=== PATIENT | female | born 1995 | race Caucasian/White ===

== ENCOUNTER 2022-07-03 00:16 | Day surgery (SDC) | payer OTHER, SELFPAY ==
[2022-06-18 15:01] VITALS: BMI 28.2
--- NOTE | 2022-06-18 15:07 | PC.NURSE ---
Report to the Outpatient Waiting Room, entrance under the green pavilion located off [facility], at time 06:00AM on date 07/03/22. Planned Procedure Time: 07:30AM. Time changes happen often and if your time is changed the preop area will call you the afternoon before. - You and your visitor will be asked to self-screen and do not enter if you have any COVID symptoms. - Only one visitor is requested with a max of two and NO children visitors are allowed at this time. - The patient visitor may be requested to leave or wait in car when not with patient due to distancing restrictions. - A mask is optional within the hospital. Patients may have clear liquids (water, carbonated beverages, clear teas, apple juice) until 3 hours prior to surgery (04:30AM) with a maximum of 20 ounces. - No food from midnight until time of surgery Take the following medications with a SIP of water the morning of surgery: METOPROLOL Medications to discontinue per physician N/A Please no make-up, nail divehi, hairspray, perfume, deodorant, or body powder the day of surgery. No jewelry (including any body piercings) or valuables the day of surgery, leave them at home. Please take a shower or bath the night before, or the morning of, surgery with an antibacterial soap. Wear comfortable, loose fitting clothing. - Jewelry must be removed prior to entering the operating room. Rings and piercings that are not removed may be cut off. - The hospital will not accept responsibility for valuables. - Please leave all valuables, including medications, at home the day of surgery. If you are going home after surgery, a licensed grab driver must drive you home. - NO public transportation without another adult if you receive anesthesia. - We recommend that an adult stay with you for 24 hours following discharge. - We also recommend that you do not drive, make important decision, drink alcoholic beverages, or take any drugs that were not prescribed by your health care provider for at least 24 hours after your discharge time. Follow any additional instructions given to you from your surgeon. If you or anyone in your household have experienced Covid symptoms in the past week, please notify your surgeon or the nurse liaison at the phone number below for possible testing. Telephone instructions given to PATIENT and asked if any additional questions and then verbalized understanding. Patient advised to call surgeon office or pre surgery nurse liaison [phone] if any additional questions.
--- NOTE | 2022-07-02 10:41 | P.PNAN_ITS ---
Anes - Initial Pre Proc Eval Procedure: Operation Date: 07/03/22 07:30 Proposed Procedures p Bilateral Breast Reduction - Harman Santana MD Date/Time: 07/02/22 10:41 Surgeon: Harman Santana MD Pre Op Diagnosis: micromastia Patient Data Age: 27 Gender: F Height: 1.57 m Weight: 70 kg Allergies Allergy/AdvReac Type Severity Reaction Status Date / Time No Known Allergies Allergy Mild Verified 06/18/22 15:02 Home Medications Medication Instructions Recorded Confirmed Type metoprolol tartrate 25 mg tablet 12.5 mg PO BID 06/18/22 06/18/22 History Patient hx anesthesia problems: post op nausea/vomiting Family hx anesthesia problems: none Results Review: All pre-operative results and documents have been reviewed as part of the pre- operative evaluation. [facility] Past Medical History Medical History (Updated 07/02/22 @ 10:42 by Chang Weeks DO) PONV (postoperative nausea and vomiting) Sinus tachycardia Surgical History Surgical History (Updated 02/25/22 @ 08:47 by Yvrose Morales) Hx of tonsillectomy Family History Family History (Updated 02/25/22 @ 08:47 by Yvrose Morales) Father Cerebrovascular accident Mother Rheumatoid arthritis Social History Social History (Updated 02/25/22 @ 08:47 by Yvrose Morales) Smoking status: Never smoker Second hand tobacco smoke exposure: No Alcohol intake: current Alcohol use details: OCCASIONAL Substance use: never Substance use type: does not use Living arrangements: alone Spiritual care concerns: No Anes - Eval Final PreProcedure Day of Procedure 07/02/22 10:41 Patient weight: overweight Heart: regular rate and rhythm Lungs: clear to auscultation Airway: Mallampati scale class II Neurological: alert and oriented Last oral intake: >/= 8 hours ASA classification: II Emergent: no Anesthetic plan: proceed Anesthesia type and monitoring: general LMA and standard monitoring Results Review: All pre-operative results and documents have been reviewed as part of the pre- operative evaluation. Informed Consent: The patient's anesthetic plan and its attendant risks and benefits were discussed with the patient/family/POA. Questions were solicited and answers provided to the satisfaction of the patient/family/POA.
[2022-07-03] VITALS (9 sets, daily range): BP systolic 120–141; BP diastolic 67–90; PULSE 68–120; RESP 12–20; TEMP 36.2–36.4; O2SAT 96–100
--- NOTE | 2022-07-03 06:29 | ECG_ITS ---
Measurements Intervals [place] Rate: 66 P: 29 VA: 142 QRS: 5 QRSD: 85 T: 14 QT: 373 QTc: 393 Interpretive Statements SINUS RHYTHM NORMAL ECG COMPARED TO ECG 01/02/2019 22:08:54 HEART RATE IS REDUCED Electronically Signed On 07-04-2022 7:23:24 FLIGHT OPERATION COORDINATOR by Raoul Haile M.D.
[2022-07-03] MEDS: LACTATED RINGERS 1,000 ML 30 ML IV CONT ×2 (06:43→09:29)
[2022-07-03 07:02] LABS: Urine Cotinine NEGATIVE
--- NOTE | 2022-07-03 07:07 | WPDHPUPDATE1 ---
History and Physical Update Update Date/Time: 07/03/22 07:07 History and Physical has been reviewed, including an updated exam of the patient. There are NO changes in the patient's condition. Risks, benefits, and alternatives have been discussed and questions answered. Patient agrees to proceed with procedure.
--- NOTE | 2022-07-03 07:07 | W.PM.PROC2 ---
Procedure Note - Detailed Date of Procedure 07/03/22 Pre-op Diagnosis micromastia Post-op Diagnosis Same Procedure Performed Bilateral Reduction Mammaplasty Surgeon Harman Santana MD Anesthesia General Findings Inverted T Superior medial pedicle Tissue removed: Right - 491.8 grams Left - 462.9 grams Lipoaspirate 100 cc Description of Procedure She is here today for bilateral breast reduction. Previously and again today the risks, benefits, alternatives were discussed in extensive detail. I wanted her to be very realistic about the risks involved as well as expectations. We discussed aftercare and what to monitor for. She understands we can never guarantee final breast size and there will always be asymmetry. I was very upfront and honest about the risks of sensation change and even nipple loss (). Made sure answered all of her questions to her satisfaction today and consent was obtained. She was marked in the preoperative holding area with their verification. The patient was taken to the operating room placed supine on the operating table. Anesthesia was provided by anesthesiology. She was prepped and draped in a standard sterile fashion. A surgical time-out was taken. Stab incisions were made and I tumessed with a tumescent solution. I marked out the nipple-areolar complex at 42 mm. I then de-epithelialized the pedicle. The pedicle was well left well more than 2 cm in thickness. I then removed the inferior portion of the breast as well as the central keel to get shape based on preoperative planning. At this point copiously irrigated with saline solution and verified a strict hemostasis. I reapproximated the pillars using a 2-0 PDS. I tailor tacked the breast into place with asha. She was placed in a sitting position. I verified the nipple-areolar complex position based on preoperative markings, intraoperative measurements, and observation which were in full agreement. This nipple-areolar complex was marked at 42 mm in size. To maximize symmetry suction lipectomy was completed based on S.A.F.E. technique utilizing a 4mm basket cannula. This was based on preoperative planning, intraoperative observation, and rolling pinch test. I then placed supine and de-epithelialized this. Nipple-areolar complex was inset with 3-0 Monocryl. I closed IMF deep with 1 strattafix. I closed the vertical incision with 3-0 Monocryl in the IMF with 3-0 stratafix. Then everything was closed using a running subcuticular 4-0 Monocryl followed by Steri-Strips. A dressing was placed followed by surgical bra. Patient was awoke and taken to PACU without difficulty. All instrument sponge counts were correct at the end of the case. Estimated Blood Loss 30 Drains No Packing No Pathology Yes (Bilteral breast tissue) Complications No immediate complications Condition Stable Disposition PACU
[2022-07-03] MEDS: SCOPOLAMINE 1.5 MG PATCH TRANSDERM (07:36)
[2022-07-03] MEDS: TRANEXAMIC ACID 1,000MG/ISO100 1,000 MG/100 ML BAG 200 MG IVPB (07:36)
[2022-07-03] MEDS: ceFAZolin 2 GM/D5W 50 ML 2 GM/50 ML BAG IVPB (07:48)
[2022-07-03] MEDS: LACTATED RINGERS IRRIG 1,000 ML, LIDOCAINE HCL 1% LOCAL INJ 50 ML, EPINEPHrine HCL INJ ... INFILTRATE (08:08)
[2022-07-03] MEDS: fentaNYL CITRATE INJ (*CRX) 100 MCG/2 ML VIAL 25 MCG IV PUSH (10:11)
[2022-07-03] MEDS: oxyCODONE HCL (*CRX) 5 MG TAB IR PO (10:49)
== END 2022-07-03 11:40 | disposition home or self-care (01) ==
PROVIDERS: PCP Internal Medicine; Visit Provider Surgery Plastic and Reconstructive Surgery
PROC: 0HBV0ZZ Excision of Bilateral Breast, Open Approach (ICD-10-PCS; CPT 19318; principal; 2022-07-03 07:30)
DX: Z41.1 Encounter for cosmetic surgery (principal); N64.82 Hypoplasia of breast; R00.0 Tachycardia, unspecified; Z79.899 Other long term (current) drug therapy
CPT/HCPCS: 19318; 80307; 88305; 93005; A9270; J0171; J0690; J1100; J1170; J2250; J2405; J2704; J3010; J7120

== ENCOUNTER 2023-11-23 10:15 | Outpatient (CLI) | payer OTHER, SELFPAY ==
[2023-11-25 13:39] LABS: NIL 0.01 IU/mL; Quantiferon TB Plus, 1T NEGATIVE (NEGATIVE)
== END 2023-11-23 10:16 | disposition home or self-care (01) ==
LOC: ANHLAB 10:21
PROVIDERS: Visit Provider Nurse Practitioner Family
DX: Z11.1 Encounter for screening for respiratory tuberculosis (principal)
CPT/HCPCS: 36415; 86480

== ENCOUNTER 2024-03-22 10:25 | Outpatient (CLI) | payer OTHER, SELFPAY ==
[2024-03-22 11:09] LABS: Alanine Aminotransferase 22 U/L (6-35); Albumin Level 4.9 g/dL (3.5-5.1); Alkaline Phosphatase 73 U/L (38-126); Anion Gap 10 mmol/L (4-12); Aspartate Amino Transferase 30 U/L (14-36); Bilirubin,Total 0.8 mg/dL (0.2-1.3); Blood Urea Nitrogen 14 mg/dL (7-17); Calcium 9.3 mg/dL (8.4-10.2); Carbon Dioxide 27 mmol/L (22-30); Chloride 100 mmol/L (98-107); Estimated Glomerular Filt Rate > 60; Glucose 96 mg/dL (65-110); Potassium 3.9 mmol/L (3.4-5.0); Sodium 137 mmol/L (137-145)
[2024-03-22 12:33] LABS: Vitamin D 25 Hydroxy 40.6 ng/mL
== END 2024-03-22 10:26 | disposition home or self-care (01) ==
LOC: ANHOBOP 10:27
PROVIDERS: Visit Provider Obstetrics & Gynecology
DX: F41.9 Anxiety disorder, unspecified (principal)
CPT/HCPCS: 36415; 80053; 82306; 82607; 84443

== ENCOUNTER 2024-10-05 08:35 | Outpatient (CLI) | payer OTHER, SELFPAY ==
--- OUTSIDE RECORDS SUMMARY | 2024-10-05 08:58 | XMS_ITS | Encounter Summary ---
Author Organization [facility] Address [facility] [place] [address] Care Team Providers Care Hydraulic Auto Jack Mechanic Name Role Phone Valentina Kate NP Primary Care Provider [phone] Encounter Details Date Type Department Care Team (Late st Contact Info) Description 06/15/2023 QirraSound Technologiest Message Enc [facility] Family & Internal Medicine [facility] [id number] [place] [phone] [place] [id number] [place] [address] [address] [place] [address] Face/arm tingling Social History Tobacco Use Types Packs/Day Years Used Date Smoking Tobacco: Never Smokeless Tobacco: Never Alcohol Use Standard Drinks/Week Comments Yes 0 (1 standard drink = 0.6 oz pur e alcohol) Occasionally AUDIT-C Answer Date Recorded Q1: How often do you have a drink containing alc ohol? Monthly or less 08/29/2020 Q2: How many drinks containi ng alcohol do you have on a typical day when you are drinking? 1 or 2 08/29/2020 Frequency of Binge Drinking Not on file 09/2020 PHQ-2 Answer Date Recorded Patient Health Questionnaire-2 Score 0 12/31/2022 Comments No Sex and Gender Information Value Date Recorded Sex Assigned at Female 10/05/2024 7:26 AM CDT Legal Sex Female 4:48 PM CDT Gender Identity Not on file Sexual Orientation Not on file documented as of this encounter Progress Notes * Valentina Kate NP - 06/15/2023 2:53 PM CST OK please let us know if symptoms happen again or worsen. ILLERY WORKER * Francesco Lund RN - 06/15/2023 2:49 PM CST Pt was not sure what caused the strokes. ILLERY WORKER * Valentina Kate NP - 06/15/2023 1:48 PM CST It would be OK to monitor her symptoms at this time. What caused her dad's CVA? Hemorrhage? She should make notes of her symptoms and schedule an office visit if they happen again. If there is a critical concern she needs to go straight to the ER. Critical concern includes B/p greater than 140/90, HR greater than 100, facial drooping, confusion, altered gait, difficulty with speech, and trouble wi th balance. ILLERY WORKER * Francesco Lund RN - 06/15/2023 1:24 PM CST Please advise. ILLERY WORKER documented in this encounter Plan of Treatment Not on file documented as of this encounter Visit Diagnoses Not on filedocumented in this encounter Additional Health Concerns Assessment Noted Time PHQ-9 Depression Total Score: 0 10/24/19 22 3:47 PM CDT documented as of this encounter Care Teams Hydraulic Auto Jack Mechanic Relationship Specialty [place] [address] [facility] [address], [place] [address] PCP - General Nurse Practitioner Family 12/17/22 documented as of this encounter
--- OUTSIDE RECORDS SUMMARY | 2024-10-05 08:58 | XMS_ITS | Encounter Summary ---
Author Organization [facility] Address [facility] [place] [address] Care Team Providers Care Yarn Inspector Name Role Phone Valentina Kate NP Primary Care Provider [phone] Encounter Details Date Type Department Care Team (Late st Contact Info) Description 02/05/2024 MedeAnalyticst Message Enc [facility] Family & Internal Medicine [facility] [id number] [place] [phone] Valentina Kate NP [address] [place] [address] [address], [place] [address] Adderall refill Social History Tobacco Use Types Packs/Day Years Used Date Smoking Tobacco: Never Passive Smoke Exposure: Never Smokeless Tobacco: Never Alcohol Use Standard [...] Date Recorded Patient Health Questionnaire-2 Score 0 11/23/2023 Comments No Sex and Gender Information Value Date Recorded Sex Assigned at Female 10/05/2024 7:26 AM CDT Legal Sex Female 4:48 PM CDT Gender Identity Not on file Sexual Orientation Not on file documented as of this encounter Progress Notes * Irma David MA - 02/08/2024 10:43 AM CDT Medication refilled 02/05/24. documented in this encounter Plan of Treatment Not on file documented as of this encounter Visit Diagnoses Not on filedocumented in this encounter Additional Health Concerns Assessment Noted Time PHQ-9 Depression Total Score: 0 10/24/19 22 3:47 PM CDT documented as of this encounter Care Teams Yarn Inspector Relationship Specialty [place] [address] [place] [address] PCP - General Nurse Practitioner Family 12/17/22 documented as of this encounter
--- OUTSIDE RECORDS SUMMARY | 2024-10-05 08:58 | XMS_ITS | Encounter Summary ---
Author Organization [facility] Address [facility] [place] [address] Care Team Providers Care Research Asst Name Role Phone Valentina Kate NP Primary Care Provider Reason for Visit * Reason Comments Medication Management Encounter Details Date Type Department Care Team ([facility] st Contact Info) Description 10/05/2024 7:40 AM CDT Office Visit [facility] Family & Internal Medicine [address] [phone] Valentina Kate NP [address] [place] [address] Medication Management Social History Tobacco Use Types Packs/Day Years Used Date Smoking Tobacco: Never Passive Smoke Exposure: Never Smokeless Tobacco: Never Tobacco Cessation:Counseling Given: No Alcohol Use Standard Drinks/Week Comments Yes 2 (1 standard drink = 0.6 oz pur [...] Date Recorded Patient Health Questionnaire-2 Score 0 10/05/2024 Comments No Sex and Gender Information Value Date Recorded Sex Assigned at Female 10/05/2024 7:26 AM CDT Legal Sex Female 4:48 PM CDT Gender Identity Not on file Sexual Orientation Not on file documented as of this encounter Last Filed Vital Signs Vital Sign Reading Time Taken Comments Blood Pressure 134/85 10/05/2024 7:34 AM CDT Pulse 76 10/05/2024 7:34 AM CDT Temperature 36.5 C (97.7 F) 10/05/2024 7:34 AM CDT Respiratory Rate 14 10/05/2024 7:34 AM CDT Oxygen Saturation 97% 10/05/2024 7:34 AM CDT Inhaled Oxygen Concentration - - Weight 78.9 kg (174 lb) 10/05/2024 7:34 AM CDT Height 157.5 cm (5' 2 ) 10/05/2024 7:34 AM CDT Body Mass Index 31.83 10/05/2024 7:34 AM CDT documented in this encounter Plan of Treatment Scheduled Orders Name Type Priority Associated Diagnoses Orde r Schedule QUANTIFERON - TB GOLD PLUS, 1T Lab Routine Screening-pulmonary TB Expected: 10/05/2024, Expires: 10/05/2025 CBC W/DIFF AUTOMATED Lab Today Paroxysmal SVT (supraventricular tachycardia) ([facility]/HCC) Expected: 10/05/2024, Expires: 10/05/2025 COMPREHENSIVE METABOLIC PANEL Lab Routine Paroxysmal SVT (supraventricular tachycardia) ([facility]/HCC) Expected: 10/05/2024, Expires: 10/05/2025 TSH W/REFLEX Lab Routine Paroxysmal SVT (supraventricular tachycardia) ([facility]/HCC) Expected: 10/05/2024, Expires: 10/05/2025 HEMOGLOBIN, GLYCOSYLATED Lab Routine Paroxysmal SVT (supraventricular tachycardia) ([facility]/HCC) Expected: 10/05/2024, Expires: 10/05/2025 documented as of this encounter Visit Diagnoses Diagnosis Obesity (BMI 30-39.9)- Primary Obesity, unspecified Attention deficit hyperactivity disorder (ADHD), predominantly inattentive type Paroxysmal SVT (supraventricular tachycardia) (HHS/HCC) Paroxysmal supraventricular tachycardia Autonomic dysfunction Unspecified disorder of autonomic nervous system Screening-pulmonary TB Screening examination for pulmonary tuberculosis Obsessive-compulsive disorder, unspecified type Anxiety Anxiety state, unspecified documented in this encounter Additional Health Concerns Assessment Noted Time PHQ-9 Depression Total Score: 2 10/06/19 25 7:56 AM CDT documented as of this encounter Care Teams Research Asst Relationship Specialty [place] [address] [address]. [place] [address] PCP - General Nurse Practitioner Family 12/17/22 documented as of this encounter
--- OUTSIDE RECORDS SUMMARY | 2024-10-05 08:58 | XMS_ITS | Clinical Summary ---
Author Organization [facility] Address [address] [place] [address] Care Team Providers Care Watch Guard Gate Name Role Phone Valentina Kate NP Primary Care Provider [phone] Allergies Active Allergy Reactions Criticality Noted Date Comments Nickel Rash Low 02/09/2013 Medications valACYclovir (VALTREX) 1 g tabletIndications :Recurrent cold sores Take 1 tablet (1,000 mg total) by mouth daily. 90 tablet 3 09/02/19 25 Active buPROPion XL (WELLBUTRIN XL) 300 MG 24 hr tabletIndications :Obsessive-compul sive disorder, unspecified type,Anxiety Take 1 tablet (300 mg total) by mouth daily. 90 tablet 2 10/06/19 25 Active metoprolol tartrate (LOPRESSOR) 25 MG tabletIndications :Paroxysmal SVT (supraventricular tachycardia) (HHS/HCC) Take 0.5 tablets (12.5 mg total) by mouth daily. 45 tablet 3 10/06/19 25 Active amphetamine-dextr oamphetamine XR (ADDERALL XR) 20 MG 24 hr capsuleIndication s:Attention deficit hyperactivity disorder (ADHD), predominantly inattentive type Take 1 capsule (20 mg total) by mouth every morning. 30 capsule 10/06/19 25 Active valACYclovir (VALTREX) 500 MG tabletIndications :Recurrent cold sores Take 1 tablet (500 mg total) by mouth daily as needed. 14 tablet 3 04/13/20 24 025 Discontinued(P t. elected to discontinue med) buPROPion XL (WELLBUTRIN XL) 150 MG 24 hr tabletIndications :Attention deficit hyperactivity disorder (ADHD), predominantly inattentive type,Obsessive-co mpulsive disorder, unspecified type Take 1 tablet (150 mg total) by mouth daily. 90 tablet 1 07/29/19 25 025 Discontinued(P t. elected to discontinue med) metoprolol tartrate (LOPRESSOR) 25 MG tabletIndications :Paroxysmal SVT (supraventricular tachycardia) (HHS/HCC) Take 0.5 tablets (12.5 mg total) by mouth daily. 30 tablet 07/29/19 25 025 Discontinued(R eorder) amphetamine-dextr oamphetamine XR (ADDERALL XR) 20 MG 24 hr capsuleIndication s:Attention deficit hyperactivity disorder (ADHD), predominantly inattentive type Take 1 capsule (20 mg total) by mouth every morning. 30 capsule 09/06/19 025 Discontinued(R eorder) Active Problems Problem Noted Date Diagnosed Date Obesity (BMI 30-39.9) 08/13/2023 Overweight (BMI 25.0-29.9) 12/31/2022 Paroxysmal SVT (supraventricular tachycardia) (H HS/HCC) 11/07/2019 Attention deficit hyperactiv ity disorder (ADHD), predominantly inattentive type 11/07/2019 Autonomic dysfunction 11/07/2019 Fatigue 12/01/2017 Vitamin D deficiency 12/01/2017 OCD (obsessive compulsive disorder) 06/10/2017 Dysmenorrhea 12/19/2015 Attention and concentration deficit 09/12/2013 Overview (07/05/2019): Annotation - 25Sep2013: difficulty in concentration causing anxiety related to school. Encounters Date Type Department Care Team Description 10/05/2024 7:40 AM CDT Office Visit [facility] Family & Internal Medicine [address] [phone] Valentina Kate NP Medication Management 10/05/2024 Travel 08/31/2024 MyChart Message [facility] Internal [address] [phone] Valentina Kate NP Valtrex 08/03/2024 MyChart Message [facility] Family & Internal [address] [place] [address] Valentina Kate, PIPE FITTER SUPERVISOR MAINTENANCE Med refill from Last 3 Months Immunizations Name Administration Dates Next Due Dtap (Generic) 02/20/2010 Fluzone Adult - >Age 3 (Pref illed Syringe) 04/19/2019 Fluzone Adult Quad >3 Yrs (S alem Dose Vial) 04/15/2020 Influenza (Generic) 05/16/2024 Influenza Adult (Generic) 05/25/2023,07/2020,04/15/2020, 017 PFIZER COVID-19 (ORIGINAL FORMULATION, PURPLE CAP) mRNA, LNP-S, PF, 30 MCG/0.3 ML DOSE 08/06/2020,07/16/2020 Tdap (Adacel) 12/03/2018 Varicella (Varivax) 01/20/2007 Family History Medical History Relation Comments Hypertension Father Stroke Father Heart Attack Maternal Grandmother Arthritis Mother None Mother Relation Status Comments Father Maternal Grandmother Mother Social History Tobacco Use Types Packs/Day Years [...] on file Sexual Orientation Not on file Last Filed Vital Signs Vital Sign Reading [...] Mass Index 31.83 10/05/2024 7:34 AM CDT Plan of Treatment Health Maintenance Due Date Last Done Comments Annual Physical 1997 Hepatitis B Vaccines (1 of 3 - 19+ 3-dose series) 2013 Cervical Cancer Screening Pap Smear (Age 30 to 64) Every 3 Years 01/13/2017 01/13/2014 Cervical Cancer Screening Pap with HPV Testing (Age 30 to 64) Every 5 Years 2024 Cervical Cancer Screening with HPV 2024 COVID-19 Vaccine ( season) 2025 08/06/2020, 07/16/2020 Postponed from 03/27/2024 (Patient Refused) DTaP, Tdap and Td Vaccines (3 - Td or Tdap) 12/03/2028 12/03/2018, 02/20/2010 Hepatitis C 12/31/2052 Postponed from 2012 (Patient Refused) Influenza Adult Completed 05/16/2024, 04/28, 04/26/2021, Additional history exists PHQ-2 ([facility]) Completed 10/05/2024 HPV Vaccines Aged Out No longer eligi ble based on patient's age to complete this topic Meningococcal B Vaccine Aged Out No l onger eligible based on patient's age to complete this topic Meningococcal Vaccine Aged Out No lizz sammy eligible based on patient's age to complete this topic Pneumococcal Vaccine: Pediatrics (0 to 5 Years) and At-Risk Patients (6 to 64 Years) Aged Out No longer eligible based on patient's age to complete this topic RSV Immunizations Under 20 Months Aged Out No longer eligible based on patient's age to complete this topic Procedures Procedure Name Priority Date/Time Associated Diagnosis Comments OUTSIDE CYTOPATH CERV/VAG INTERPRET (PAP) (SCAN ORDER) Routine 01/13/2014 12:00 AM CDT from Last 3 Months or Most Recently Relevant to Health Maintenance Results * PAP SMEAR (01/13/2014 12:00 AM CDT) 01/13/2014 us Documents Scanned SCANNING Final Result [facility] from Last 3 Months or Most Recently Relevant to Health Maintenance Insurance [employer] Care Teams Watch Guard Gate Relationship Specialty [place] [address] [facility] [address]. [place] [address] PCP - General Nurse Practitioner Family 12/17/22
--- OUTSIDE RECORDS SUMMARY | 2024-10-05 08:58 | XMS_ITS | Clinical Summary ---
Author Organization [facility] Address [address] [place] [address] Care Team Providers Care Trim Die Maker Name Role Phone Evelia Carroll MD Primary Care Provider [phone] Beto Srivastava MD Unavailable [phone] Source Comments [facility],non-owned Affiliates and Associated Physician Practices is amultiple site organization consisting of ambulatory clinics and hospital sitesin [place], [place], [place] and [place]. This disclosure is being madepursuant to the Care Everywhere program and may not contain all information available regarding this patient. Last updated 18.[facility] Allergies No known active allergies Medications * Be aware that medications may not be up to date on this document. Alwaysverify current medications with the patient. Medication Sig Dispensed Refills Start Date End Date Status amphetamine-dextroa mphetamine (ADDERALL) 10 MG tablet every 24 hours Active valACYclovir (VALTREX) 500 MG tablet Take 1 (one) tablet by mouth 2 times daily 06/25/2020 Active midodrine (PROAMATINE) 2.5 MG tabletIndications:D izziness,Lightheade dness Take 1 tablet by mouth 3 times daily as needed (For low blood pressure). 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 Social History Tobacco Use Types Packs/Day Years Used Date Smoking Tobacco: Never Smokeless Tobacco: Never Tobacco Cessation:Counseling Given: Yes PHQ-2 Answer Date Recorded Patient Health Questionnaire-2 Score 0 07/13/2023 Sex and Gender Information Value Date Recorded Sex Assigned at Not on file Gender Identity Not on file Sexual Orientation Not on file Last Filed Vital Signs Vital Sign Reading Time Taken Comments Blood Pressure 118/86 07/13/2023 10:07 AM INSPECTOR BARREL Pulse 74 07/13/2023 10:07 AM INSPECTOR BARREL Temperature 36.7 C (98 F) 07/13/2023 10:07 AM INSPECTOR BARREL Respiratory Rate 16 02/01/2020 3:17 PM CDT Oxygen Saturation 98% 01/13/2022 2:01 PM CDT Inhaled Oxygen Concentration - - Weight 74.5 kg (164 lb 3.2 oz) 07/13/2023 10:07 AM INSPECTOR BARREL Height 157.5 cm (5' 2 ) 01/07/2021 3:22 PM CDT Body Mass Index 30.03 01/07/2021 3:22 PM CDT Plan of Treatment Health Maintenance Due Date Last Done Comments PAP SMEAR 1995 HIV SCREENING 2009 HEPATITIS C SCREENING 03/12/2012 DTAP/TDAP/TD VACCINES (1 - Tdap) 2013 HEPATITIS B VACCINE (1 of 3 - 19+ 3-dose series) 2013 COVID-19 VACCINE ( season) 2024 08/06/2020, 07/16/2020 INFLUENZA VACCINE (#1) 2024 , 04/15/2020, 04/19/2019, Additional history exists DEPRESSION SCREENING 07/27/2024 07/13/2023, 01/14/20 ZOSTER VACCINE (1 of 2) 2044 HIB VACCINE Aged Out No longer eligi ble based on patient's age to complete this topic HPV VACCINE Aged Out No longer eligi ble based on patient's age to complete this topic MENINGOCOCCAL (Group B) VACCINE SHARED DECISION-MAKING Aged Out No longer eligible based on patient's age to complete this topic MENINGOCOCCAL GROUPS A/C/Y/W VACCINE Aged Out No longer eligible based on patient's age to complete this topic PNEUMOCOCCAL VACCINE Aged Out No long er eligible based on patient's age to complete this topic Care Teams Trim Die Maker Relationship Specialty Start Date End Date Evelia Carroll MD PCP - General Internal Medicine 09/15/19 Beto Srivastava MD Electrophysiology 11/07/19
--- OUTSIDE RECORDS SUMMARY | 2024-10-05 08:58 | XMS_ITS | Patient Health Summary ---
Author Organization [facility] Address [address] [place] [address] Care Team Providers Care Contract Recruiter Name Role Phone Evelia Carroll MD Primary Care Provider [phone] Beto Srivastava MD Unavailable [phone] Note from [facility],non-owned Affiliates and Associated Physician Practices is amultiple site organization consisting of ambulatory clinics and hospital sitesin [place], [place], [place] and [place]. This disclosure is being madepursuant to the Care Everywhere program and may not contain all information available regarding this patient. Last updated 18.[facility] Allergies No known active allergies Medications * Be aware that medications may not be up to date on this document. Alwaysverify current medications with the patient. * amphetamine-dextroamphetamine (ADDERALL) 10 MG tablet every 24 hours * valACYclovir (VALTREX) 500 MG tablet(Started 06/25/2020) Take 1 (one) tablet by mouth 2 times daily * midodrine (PROAMATINE) 2.5 MG tablet(Started 08/07/2020) Take 1 tablet by mouth 3 times daily as needed (For low blood pressure). * metoprolol tartrate IR (Lopressor) 25 MG tablet(Started 07/13/2023) Take 0.5 (one-half) tablet by mouth 2 times daily 3 refills by 07/12/2024 Active Problems Problem Noted Date Diagnosed Date [...] Comments Blood Pressure 118/86 07/13/2023 10:07 AM STROBOROMA OPERATOR Pulse 74 07/13/2023 10:07 AM STROBOROMA OPERATOR Temperature 36.7 C (98 F) 07/13/2023 10:07 AM STROBOROMA OPERATOR Respiratory Rate 16 02/01/2020 3:17 PM CDT Oxygen Saturation 98% 01/13/2022 2:01 PM CDT Inhaled Oxygen Concentration - - Weight 74.5 kg (164 lb 3.2 oz) 07/13/2023 10:07 AM STROBOROMA OPERATOR Height 157.5 cm (5' 2 ) 01/07/2021 3:22 PM CDT Body Mass Index 30.03 01/07/2021 3:22 PM CDT Procedures * SARS-COV-2 (COVID-19) IN HOUSE(Performed 06/13/2020) Performed for Cough * TILT TABLE TEST WITH AUTONOMIC STUDIES(Performed 04/10/2020) Performed for Dizziness, Lightheadedness, Palpitations, Tachycardia * SARS-COV-2 (COVID-19) IN HOUSE(Performed 04/08/2020) Performed for Pre-procedural examination * WA REMOVE CERUMEN IMPACTED W INSTR VEAR(Performed 02/20/2020) Performed for Bilateral impacted cerumen * EXTENDED CARDIAC MONITORING READ(Performed 12/14/2019) Performed for Paroxysmal SVT (supraventricular tachycardia) * CARDIAC STRESS TEST ORDER(Performed 01/28/2019) * LAB RESULTS ORDER(Performed 01/10/2019) * CARDIAC EKG ORDER(Performed 01/02/2019) * LAB RESULTS ORDER(Performed 01/02/2019) * XR CHEST 2VW(Performed 01/02/2019) Results * (ABNORMAL) [facility] COVID LAB ([facility]) (06/13/2020 12:25 PM STROBOROMA OPERATOR) Only the most recent of2 resultswithin the time period is included. COVID-19 PCR Detected( AA) Not detected 06/15/2020 6:56 AM STROBOROMA OPERATOR [facility] Microbiology SPECIMEN FROM NASOPHARYNGEAL STRUCTURE / Unknown Collection / Unknown 06/13/2020 12:25 PM STROBOROMA OPERATOR 06/13/2020 12:25 PM STROBOROMA OPERATOR Narrative [facility] - 06/15/2020 6:56 AM [facility] This nucleic acid amplification assay performance was validated by [facility]. This test has been authorized by the Food and Drug administration (FDA)under an Emergency Use Authorization (EUA). This test has been validated in accordance with the FDA's guidance document Policy for Diagnostic Testing in Laboratories Certified to perform High Complexity Testing under CLIA prior to Emergency Use Authorization for Coronavirus Disease-2019 during the Public Health Emergency issued on September 24, 2019. FDA independent review of this validation is pending. This test is only authorized for the duration of time the declaration that circumstances exist justifying the authorization of emergency use of in vitro diagnostic tests for detection of SARS-CoV-2 virus and/or diagnosis of COVID-19 infection under section 564(b)(1) of the Act, 21 U.S.C 360bbb-3 (b)(1), unless the authorization is terminated or revoked sooner. Fact Sheets for this EUA assay are available upon request. Shavonne Calderón APRN-[facility] - MICROBI OLOGY ORDERABLES [facility] [address] [place] [address], [facility] [phone] * TILT TABLE TEST WITH AUTONOMIC STUDIES (04/10/2020 1:30 PM CDT) Narrative Maddy Keen MD - 04/10/2020 1:30 PM CDT Maddy Keen MD 04/14/2020 8:22 AM Autonomic Laboratory Studies March, 10:47:29 AM Testing Facility [facility] Health, Neuroscience [address] [place] [id number] Reason for Referral: Palpitations, Dizziness, Lightheaded, Tachycardia Patient Profile Visit Remarks: 25yoFemale referred for Palpitations, Dizziness, Lightheaded, Tachycardia. Started 3yrs ago. Sx - Dizziness, Nausea, Racing heart, SOB. Standing up, Prolong standing, Heat can trigger sx's. Sitting and lying down can improve sx's. Meds - Metoprolol, Adderall (none 48hrs). ID: [id number] Name: Laine Robertson Referring: Beto Srivastava M.D. Sex: Female Birthdate: 1995 Attending: Maddy Keen M.D. Height: 62 in Weight: 160 lbs Primary: Impression:TTT demonstrates delayed orthostatic hypotension with reactive tachycardia at 14 minutes with near syncope, aborting the test. Baroreflex shows impaired Phase II and IV. HRDB and QSweat is normal. This study shows adrenergic dysautonomia. Further testing with supine and standing norepinephrine and a clinical trial of midodrine may be helpful. Signature: Maddy Keen M.D. Director, Clinical Neurophysiology Time: 04/10/2020 2:10 PM Test Notes: Lightheadedness upon standing. 9-tired. 10-Nausea. 14- Nausea, Hot/Sweaty, Dizzy, I'm going to pass out . 18-Ending study due to patient stating she is going to throw up. Test Tilt Test - Version Date 3 Lead Quality Control Technician: Ricco Epperson Analysis Tilt (ECG) Analysis - Version Date 3 Beto Srivastava MD NEUROLOGY ORDERABLE S * WA REMOVE CERUMEN IMPACTED W INSTR VERA (02/20/2020 2:13 PM CDT) Narrative Braulio Licea MD - 02/20/2020 2:13 PM CDT Braulio Licea MD 02/20/2020 2:14 PM Procedure: Binocular Microscopic Removal of Impacted Cerumen AU Indications: Cerumen impaction obscuring the tympanic membrane. Findings: See main note. Procedure Note: After verbal consent was obtained, the binocular operative microscope was brought into position. An otologic speculum was inserted into the cartilaginous external auditory canal. Cerumen was removed using a combination of cerumen loops, suction, and alligator forceps. There was no bleeding Braulio Licea MD Braulio Licea MD PROCEDURE/MINOR RENNY GICAL ORDERABLES * EVENT MONITOR - EXTENDED TELEMETRY (12/14/2019) Impressions Richie Lim MD - 12/14/2019 [facility] - Heart & Vascular - Event Monitor Name: Laine Robertson : 1995 Primary care provider: Evelia Carroll MD Referring provider: Mahesh Srivastava MD Clinical Indication: 24-year-old woman with arrhythmia. A continuous field operations farm manager was placed on 11/10/2019 and worn for 28 days. Findings: 28 day monitor demonstrates sinus rhythm, average heart rate of 81 bpm. The min heart rate is 50 bpm and the max 190 bpm at 2:41 pm. There were very rare isolated atrial and ventricular premature complexes. There were no significant arrhythmias. The patient reported 13 episodes of shortness of breath and palpitations. Corresponding strips demonsrate sinus tachycardia HR up to 183 bpm. Conclusion: 1. 28 day monitor demonstrates sinus rhythm with rare isolated APCs and PVCs. 2. There were no significant arrhythmias. 3. The patient reported 13 episodes of shortness of breath and palpitations. Corresponding strips demonsrate sinus tachycardia HR 110-183 bpm. Thank you. Please do not hesitate to call if there are any questions. Richie Lim MD [facility] Health - Heart & Vascular Care Office Beto Srivastava MD CARDIAC SERVICES OR DERABLES * CARDIAC STRESS TEST ORDER (01/28/2019) Scanned Document CARDIAC SERVICES ORD ERABLES * LAB RESULTS ORDER (01/10/2019) Only the most recent of2 resultswithin the time period is included. Scanned Document LAB - THERAPEUTIC DR UG MONITORING ORDERABLES * CARDIAC EKG ORDER (01/02/2019) Scanned Document CARDIAC SERVICES ORD ERABLES * XR CHEST 2VW (01/02/2019) Anatomical Region Laterality Modality Chest Other Scanned Document DIAGNOSTIC IMAGING O RDERABLES Care Teams Contract Recruiter Relationship Specialty Start Date End Date Evelia Carroll MD PCP - General Internal Medicine 09/15/19 Beto Srivastava MD Electrophysiology 11/07/19
--- OUTSIDE RECORDS SUMMARY | 2024-10-05 08:58 | XMS_ITS | Encounter Summary ---
Author Organization [facility] Address [address] [facility] [place] [address] Care Team Providers Care County Tax Assessor Name Role Phone Valentina Kate NP Primary Care Provider [phone] Encounter Details Date Type Department Care Team (Latest Contact Info) Description 10/05/2024 Travel Social History Tobacco Use Types Packs/Day Years Used Date Smoking Tobacco: Never Passive Smoke Exposure: Never Smokeless Tobacco: Never Alcohol Use Standard Drinks/Week Comments Yes 2 [...] on file documented as of this encounter Plan of Treatment Not on file documented as of this encounter Visit Diagnoses Not on filedocumented in this encounter Additional Health Concerns Assessment Noted Time PHQ-9 Depression Total Score: 2 10/06/19 25 7:56 AM CDT documented as of this encounter Care Teams County Tax Assessor Relationship Specialty [place] [address] [address] PCP - General Nurse Practitioner Family 12/17/22 documented as of this encounter
--- OUTSIDE RECORDS SUMMARY | 2024-10-05 08:58 | XMS_ITS | Referral Summary ---
Author Organization [facility] Address [address] [place] [address] Care Team Providers Care Drier Take Off Tender Name Role Phone Evelia Carroll MD Primary Care Provider [phone] Bteo Srivastava MD Unavailable [phone] Source Comments [facility],non-owned Affiliates and Associated Physician Practices is amultiple site organization consisting of ambulatory clinics and hospital sitesin [place], [place], [place] and [place]. This disclosure is being madepursuant to the Care Everywhere program and may not contain all information available regarding this patient. Last updated 18.[facility] Allergies No known active allergies Medications * [...] Comments Blood Pressure 118/86 07/13/2023 10:07 AM BONING ROOM WORKER Pulse 74 07/13/2023 10:07 AM BONING ROOM WORKER Temperature 36.7 C (98 F) 07/13/2023 10:07 AM BONING ROOM WORKER Respiratory Rate 16 02/01/2020 3:17 PM CDT Oxygen Saturation 98% 01/13/2022 2:01 PM CDT Inhaled Oxygen Concentration - - Weight 74.5 kg (164 lb 3.2 oz) 07/13/2023 10:07 AM BONING ROOM WORKER Height 157.5 cm (5' 2 ) 01/07/2021 3:22 PM CDT Body Mass Index 30.03 01/07/2021 3:22 PM CDT Plan of Treatment Not on file Care Teams Drier Take Off Tender Relationship Specialty Start Date End Date Evelia Carroll MD PCP - General Internal Medicine 09/15/19 Beto Srivastava MD Electrophysiology 11/07/19
--- OUTSIDE RECORDS SUMMARY | 2024-10-05 08:58 | XMS_ITS | Encounter Summary ---
Author Organization [facility] Address [facility] [place] [address] Care Team Providers Care Pictures Editor Name Role Phone Valentina Kate NP Primary Care Provider [phone] Encounter Details Date Type Department Care Team (Late st Contact Info) Description 08/03/2024 [employer] Therapeuticst Message Enc [facility] Family & Internal Medicine [facility] [address] [place] [address] Valent[place] [id number] [place] [address] [address], [place] [address] Med refill Social History Tobacco Use Types Packs/Day [...] Date Recorded Patient Health Questionnaire-2 Score 0 03/10/2024 Comments No Sex and Gender Information Value [...] Noted Time PHQ-9 Depression Total Score: 0 03/10/20 24 6:57 AM CDT documented as of this encounter Care Teams Pictures Editor Relationship Specialty [place] [address] [facility] [address] [place] [id number] PCP - General Nurse Practitioner Family 12/17/22 documented as of this encounter
--- OUTSIDE RECORDS SUMMARY | 2024-10-05 08:58 | XMS_ITS | Encounter Summary ---
Author Organization [facility] Address [facility] [place] [address] Care Team Providers Care Animal Behaviorist Name Role Phone Valentina Kate HUMAN RESOURCES ADMINISTRATOR Primary Care Provider [phone] Encounter Details Date Type Department Care Team (Late st Contact Info) Description 10/21/2023 [employer] Message Enc [facility] Family & Internal Medicine [address] [address] [place] Provider reschedule appointment Social History Tobacco Use Types Packs/Day Years [...] Date Recorded Patient Health Questionnaire-2 Score 0 08/13/2023 Comments No Sex and Gender Information Value [...] documented as of this encounter Care Teams Animal Behaviorist Relationship Specialty [place] [address] [facility] [address], [place] [address] PCP - General Nurse Practitioner Family 12/17/22 documented as of this encounter
[2024-10-05 09:18] LABS: Basophils Percent Auto 0.4 % (0.2-1.2); Eosinophils Absolute Auto 0.1 K/mm3 (0-0.3); Eosinophils Percent Auto 0.5 % (0-4.4); Hematocrit 42.5 % (37.0-47.0); Hemoglobin 14.6 g/dL (12.0-15.0); Immature Granulocyte Absolute 0.04 K/mm3 (0.00-0.031); Immature Granulocyte Percent A 0.4 % (0-0.5); Lymphocytes Absolute Auto 1.53 K/mm3 (0.9-3.2); Lymphocytes Percent Auto 14.2 % (18.3-44.2); Mean Corpuscular HGB Conc 34.4 g/dl (32-36); Mean Corpuscular Hemoglobin 30.7 pg (26-34); Mean Corpuscular Volume 89.3 fl (80-100); Mean Platelet Volume 8.9 fl (7.4-10.4); Monocytes Absolute Auto 0.8 K/mm3 (0.1-0.6); Monocytes Percent Auto 7.3 % (2.6-8.5); Neutrophils Absolute Auto 8.4 K/mm3 (1.3-6.7); Neutrophils Percent Auto 77.2 % (45.5-73.1); Platelet Count Result 248 k/mm3 (150-375); Red Blood Count 4.76 M/mm3 (4.2-5.4); Red Cell Distribution Width 12.5 % (11.5-14.5); White Blood Count 10.8 K/mm3 (4.5-10.0)
[2024-10-05 09:34] LABS: Alanine Aminotransferase 20 U/L (6-35); Albumin Level 4.7 g/dL (3.5-5.1); Alkaline Phosphatase 68 U/L (38-126); Anion Gap 11 mmol/L (4-12); Aspartate Amino Transferase 22 U/L (14-36); Bilirubin,Total 0.6 mg/dL (0.2-1.3); Blood Urea Nitrogen 17 mg/dL (7-17); Calcium 9.1 mg/dL (8.4-10.2); Carbon Dioxide 23 mmol/L (22-30); Chloride 104 mmol/L (98-107); Estimated Glomerular Filt Rate > 60; Glucose 94 mg/dL (65-110); Potassium 4.2 mmol/L (3.4-5.0); Sodium 138 mmol/L (137-145)
[2024-10-05 09:35] LABS: Hemoglobin A1C 4.9 % (<5.7)
[2024-10-08 13:38] LABS: NIL 0.01 IU/mL; Quantiferon TB Plus, 1T NEGATIVE (NEGATIVE)
== END 2024-10-05 08:36 | disposition home or self-care (01) ==
LOC: ANHLAB 08:38
PROVIDERS: PCP Nurse Practitioner Family; Visit Provider Nurse Practitioner Family
DX: I47.10 Supraventricular tachycardia, unspecified (principal); Z11.1 Encounter for screening for respiratory tuberculosis
CPT/HCPCS: 36415; 80053; 83036; 84443; 85025; 86480